=== PATIENT | female | born 1965 | race Caucasian/White ===

== ENCOUNTER 2017-12-29 05:27 | Emergency (ER) | payer MEDICAID ==
[~2017-12-29] VITALS: Ht 170.2 cm; Wt 70.5 kg
[~2017-12-29 05:27] MED LIST: ACCURETIC 20-251 TAB PO; FISH OIL 1,0001 CA1 PO; HYDROCODONE-APA1 TAB PO; IMITREX50 MG PO; LEVOTHYROXINE100 MCG PO; PROCTOCORT28.35 GM RC; REQUIP4 MG PO; TOPROL XL50 MG PO; XANAX1 MG PO
[2017-12-29 05:36] VITALS: Ht 170.2 cm; Wt 70.5 kg
[2017-12-29] MEDS ORDERED: ROBAXIN-750750 MG PO (05:38)
[2017-12-29] MEDS ORDERED: TOPROL XL25 MG PO (05:38)
[2017-12-29] MEDS ORDERED: MARTEN-TAB 325/1 TAB (05:39)
[2017-12-29] MEDS ORDERED: REQUIP4 MG (05:39)
[2017-12-29] MEDS ORDERED: ACCURETIC 10-121 TAB (05:39)
[2017-12-29] MEDS ORDERED: XANAX1 MG PO (05:40)
[2017-12-29] MEDS ORDERED: PROTONIX40 MG (05:40)
[2017-12-29] MEDS ORDERED: IBUPROFEN800 MG PO (05:40)
[2017-12-29] MEDS ORDERED: PHENERGAN25 M1 PO ×2 (05:41→08:08)
[2017-12-29] MEDS ORDERED: PROAIR HFA8.5 GM INH (05:41)
[2017-12-29 06:04] LABS: BASOPHILS 0.2 % (0-2); EOSINOPHILS 2.4 % (0-7); HEMATOCRIT 44.6 % (36.0-48.0); HEMOGLOBIN 15.5 g/dL (12-16); IMMATURE GRANULOCYTES 0.1 % (0-5); LYMPHOCYTES 24.8 % (15-50); MCH 33.1 pg (26.0-34.0); MCHC 34.8 g/dL (31.0-37.0); MCV 95.3 fL (80.0-100.0); MEAN PLATELET VOLUME 11.5 fL (7.4-10.4); MONOCYTES 7.9 % (2-11); NEUTROPHILS 64.6 % (40-80); PLATELET COUNT 170 10x3/uL (130-400); RBC 4.68 10x6/uL (4.00-5.40); WBC 8.4 10x3/uL (4.8-10.8)
[2017-12-29 06:18] LABS: ALBUMIN 3.9 g/dL (3.4-5.0); ALKALINE PHOSPHATASE 56 U/L (46-116); ALT (SGPT) 15 U/L (10-68); AMYLASE - SERUM 80 U/L (25-115); BILIRUBIN - TOTAL 0.57 mg/dL (0.2-1.3); CALC OSMOLALITY 279 mosm/kg (275-300); CALCIUM 9.4 mg/dL (8.5-10.1); CARBON DIOXIDE 28.7 mmol/L (21.0-32.0); CHLORIDE - SERUM 103 mmol/L (98-107); CREATININE - SERUM 0.8 mg/dL (0.6-1.3); GLUCOSE 109 mg/dL (74-106); LIPASE 287 U/L (73-393); POTASSIUM - SERUM 3.6 mmol/L (3.5-5.1); PROTEIN - SERUM 7.6 g/dL (6.4-8.2); SODIUM 140 mmol/L (136-145); UREA NITROGEN 13 mg/dL (7-18); eGFR NON AFRICAN AMERICAN 79 mL/min (90-120)
[2017-12-29 06:47] LABS: APPEARANCE CLEAR (CLEAR); BILIRUBIN NEGATIVE (NEGATIVE); COLOR YELLOW (YELLOW); GLUCOSE NEGATIVE (NEGATIVE); KETONE NEGATIVE (NEGATIVE); NITRITE NEGATIVE (NEGATIVE); PROTEIN NEGATIVE (NEGATIVE); UROBILINOGEN NORMAL (NORMAL)
[2017-12-29 06:48] LABS: BACTERIA FEW /hpf (NONE SEEN); EPITHELIAL CELLS OCC /hpf (0-5); RED CELLS - URINE OCC /hpf (0-5); WHITE CELLS - URINE OCC /hpf (0-5)
[2017-12-29 08:40] VITALS: BP 144/97
== END 2017-12-29 08:38 | disposition home or self-care (01) ==
LOC: D.ER 05:27
PROVIDERS: Family Medicine
DX: M54.31 Sciatica, right side (principal); R51 Headache; R11.0 Nausea; M54.5 Low back pain; B19.20 Unspecified viral hepatitis C without hepatic coma; E07.9 Disorder of thyroid, unspecified; F17.200 Nicotine dependence, unspecified, uncomplicated